=== PATIENT | female | born 1945 | race Caucasian/White ===

== ENCOUNTER → 2017-09-02 | Outpatient (CLI) | payer MEDICARE ==
--- NOTE | 2017-09-02 16:03 | RADRPT ---
EXAM DATE/TIME: 09/02/2017 13:28 This report includes an Addendum and supersedes previous reports for this exam. [place] COMPARISON: No previous studies available for comparison. INDICATIONS : Tremors. DOSE: mCi Ioflupane Iodine-123 in 2.5 ml total volume MEDICATION(S): 130 mg Potasium Iodine PO one hour prior to injection SPECT IMAGIN.5 Hrs RADIATION DOSE: CTDIvol (mGy) MEDICAL HISTORY : Hypertension. Gastroesophageal reflux disease. SURGICAL HISTORY : Hysterectomy. ENCOUNTER: Initial ACUITY: 1 day PAIN SCALE: 0/10 LOCATION: cranial TECHNIQUE: SPECT imaging of the brain was performed in sagittal, axial and coronal planes. Attenuation correctio n was performed with computed tomography and both the attenuation correction and non-attenuation juancho ected data sets were reviewed. 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 Edilberto Flowers MD on September 02, 2017 at 15:56 Board Certified Radiologist. This report was verified electronically. ADDENDUM: Dose: 4.99 mCi Ioflupane I-123 Radiation dose: 30.27 mGy Edilberto Flowers MD on September 03, 2017 at 15:37 Board Certified Radiologist. This report was verified electronically.
== END ==
LOC: HRAD 09:48
DX: G20 Parkinson's disease (principal)
CPT/HCPCS: 78607; A9584